=== PATIENT | female | born 1995 | race American Indian/Alaskan Native ===

== ENCOUNTER 2019-10-19 20:45 | Outpatient (CLI) | payer OTHER ==
[2019-10-19] MEDS ORDERED: LACTATED RINGERS 1,000 ML IV ONE (22:06)
[2019-10-19 22:14] LABS: Amphetamine Screen,Urine PRESUMPTIVE NEGATIVE; Bacteria,Urine 3+ /HPF (Negative); Benzodiazepines Screen,Urine PRESUMPTIVE NEGATIVE; Bilirubin,Urine NEG (Negative); Blood,Urine NEG (Negative); Cannabinoid Screen,Urine PRESUMPTIVE NEGATIVE; Cocaine Screen,Urine PRESUMPTIVE NEGATIVE; Color,Urine Yellow (Yellow); Hyaline Casts,Urine 1 /LPF; Methadone Screen,Urine PRESUMPTIVE NEGATIVE; Mucus,Urine FEW /HPF; Opiate Screen,Urine PRESUMPTIVE NEGATIVE; Protein,Urine <15 mg/dL mg/dL (Negative); Urobilinogen,Urine < 2.0 mg/dL (<2.0)
[2019-10-19] MEDS ORDERED: cefTRIAXone/NS 1 GM/50 ML 1 GM/50 ML BAG IV ONE (23:25)
--- NOTE | 2019-10-19 23:43 | Ultrasound Report ---
ULTRASOUND OBSTETRIC LIMITED ULTRASOUND BIOPHYSICAL PROFILE INDICATION / CLINICAL INFORMATION: HILTON/check placenta. Clinical Gestational Age (GA): 38.3 weeks.days COMPARISON: None available. FINDINGS: BREATHING MOVEMENT = 2 GROSS BODY MOVEMENT = 2 TONE = 2 QUALITATIVE AMNIOTIC FLUID VOLUME = 2 TOTAL BIOPHYSICAL SCORE = 8/8 HEART RATE (beats per minute): 142 AMNIOTIC FLUID INDEX (cm) = 11.2 (normal = 7-24 cm) PRESENTATION: Cephalic. ADDITIONAL FINDINGS: Placenta is anterior and to the right. No sonographic evidence for placental abr uption. IMPRESSION: 1. Biophysical Score = 8/8 2. Normal amniotic fluid index. Signer Name: Diana Galaviz MD Signed: 10/19/2019 11:39 PM Workstation Name: [id number]
[2019-10-19 23:47] VITALS: BP 106/67
--- NOTE | 2019-10-19 23:47 | Event Note ---
Date: 10/19/19 at 38 weeks, 3 days gestation. Here to rule out labor. Patient states she had contractions that started several hours ago. She denies LOF or VB. Pt. reports good movement. Patient denies dysuria, urinary frequency or urgency, flank pain, fever or chills, or malaise. Patient denies cough or SOB. Patient is well appearing. Afebrile. VSS. Abdomen is soft, nontender. Irregular mild contractions resolved with IV hydration. Cervix 1/thick/high/posterior, unchanged after greater than 1 hour. BPP 8/8. HILTON 11.2 cm. FHR 142 bpm. No evidence of placental abruption by US. UDS negative. Urinalysis shows some blood, leukocytes and bacteria. Patient was hydrated with LR. She was also given Rocephin 1 gram IV. Discussed with patient avoidance of sweet tea, sodas and coffee and encouraged patient to drink plenty of water. Discussed with pt. daily movement counting, sgins of labor, and warning signs of late . Advised patient to follow up at [facility] on Sunday10/21/2019. Patient voiced understanding. Rx for UTI also called to [facility] on [address]
== END 2019-10-19 23:57 | disposition home or self-care (01) ==
LOC: TRG 20:45
PROVIDERS: ATTEND Obstetrics & Gynecology
DX: O62.9 Abnormality of forces of labor, unspecified (principal); O47.1 False labor at or after 37 completed weeks of gestation; O99.013 Anemia complicating pregnancy, third trimester; D64.9 Anemia, unspecified; Z3A.38 38 weeks gestation of pregnancy
CPT/HCPCS: 76815; 76819; 80307; 81001; 96361; 96365; J0696; J7120

== ENCOUNTER 2020-12-05 20:12 | Emergency (ER) | payer OTHER ==
[2020-12-06] MEDS ORDERED: ACETAMINOPHEN W/CODEINE 300-30 MG TAB PO ONE (01:41)
[2020-12-06] MEDS ORDERED: IBUPROFEN 800 MG TAB PO ONE (01:41)
[2020-12-06] MEDS ORDERED: AMOXICILLIN/K CLAV 875/125MG TAB PO ONE (01:41)
[2020-12-06] MEDS ORDERED: LIDOCAINE VISCOUS 2% 15 ML ORAL LIQD PO ONE (01:41)
[2020-12-06] MEDS ORDERED: predniSONE 20 MG TAB PO ONE (01:42)
--- NOTE | 2020-12-06 02:12 | Emergency Department Report ---
ED General Adult HPI - General Chief complaint: Earache Stated complaint: RT EAR PAIN Source: patient Mode of arrival: Ambulatory Limitations: No Limitations - History of Present Illness Initial comments: Patient is a 25-year-old -[place] female with no past medical history presents to the ED with complaint of acute onset persistent severe bilateral ear pain with thick purulent discharge from the right ear, nasal and sinus congestion and severe sore throat with dysphagia for the last 2 days. Patient also complains of frontal sinus pressure and headache, diffuse body aches and pains and chills and subjective fever for the last 12 hours. Patient states that she has not been able to sleep because of worsening pain. Patient states that no one else at home has had similar symptoms. Patient denies dizziness, syncope, chest pain, shortness of breath, change in vision, traumatic injury, back pain, dysuria, urinary frequency and urgency, abdominal pain, or hearing loss. MD Complaint: Severe sore throat, severe bilateral ear pain, nasal and sinus congestion -: Sudden, days(s) (2) Location: head, face (Bilateral ears) Radiation: non-radiation Severity scale (0 -10): 8 Quality: aching, sharp Consistency: constant Improves with: none Worsens with: none Associated Symptoms: denies other symptoms, cough, fever/chills, headaches, loss of appetite, malaise. denies: confusion, chest pain, diaphoresis, nausea/vomiting, rash, seizure, shortness of breath, syncope, weakness Treatments Prior to Arrival: none - Related Data Home Medications Medication Instructions Recorded Confirmed Last Taken Ferrous Sulfate [Feosol 325 MG tab] 1 tab ONCE 11/03/19 11/03/19 11/02/19 08:00 Previous Rx's Medication Instructions Recorded Last Taken Type Ferrous Sulfate [Feosol 325 MG tab] 325 mg PO QDAY 30 Days #30 tablet 11/04/19 Unknown Rx Amoxicillin/Potassium Clav 1 each PO Q12H #20 tablet 12/06/20 Unknown Rx [Augmentin 875-125 Tablet] Ibuprofen [Motrin] 800 mg PO Q8HR PRN #30 tablet 12/06/20 Unknown Rx Lidocaine Viscous 2% 10 ml PO Q4H PRN #120 ml 12/06/20 Unknown Rx Ofloxacin 0.3% [Floxin 0.3% Otic] 2 drop OT Q12H #10 ml 12/06/20 Unknown Rx predniSONE [Deltasone] 40 mg PO QDAY #10 tab 12/06/20 Unknown Rx Allergies Allergy/AdvReac Type Severity Reaction Status Date / Time No Known Allergies Allergy Verified 10/19/19 22:16 ED Review of Systems ROS: Stated complaint: RT EAR PAIN Other details as noted in HPI Constitutional: chills, fever, malaise, weakness Eyes: denies: eye pain, eye discharge, vision change ENT: ear pain (Bilateral ear pain), throat pain (With dysphagia), congestion, other (Frontal sinus pressure and headache) Respiratory: cough. denies: shortness of breath, wheezing Cardiovascular: denies: chest pain, palpitations Endocrine: no symptoms reported Gastrointestinal: denies: abdominal pain, nausea, vomiting, diarrhea Genitourinary: denies: urgency, dysuria, discharge Musculoskeletal: arthralgia, myalgia. denies: back pain, joint swelling Skin: denies: rash, lesions Neurological: headache (Frontal sinus pressure and headache). denies: weakness, paresthesias Psychiatric: denies: anxiety, depression Hematological/Lymphatic: denies: easy bleeding, easy bruising ED Past Medical Hx - Past Medical History Previous Medical History?: No Hx Hypertension: No Hx Heart Attack/AMI: No Hx Congestive Heart Failure: No Hx Diabetes: No Hx Deep Vein Thrombosis: No Hx Liver Disease: No Hx Renal Disease: No Hx Sickle Cell Disease: No Hx Seizures: No Hx Asthma: No Hx COPD: No Hx HIV: No - Surgical History Past Surgical History?: No Hx Pacemaker: No Hx Internal Defibrillator: No - Social History Smoking Status: Former Smoker - Medications Home Medications: Home Medications Medication Instructions Recorded Confirmed Last Taken Type Ferrous Sulfate [Feosol 325 MG tab] 1 tab ONCE 11/03/19 11/03/19 11/02/19 08:00 History Ferrous Sulfate [Feosol 325 MG tab] 325 mg PO QDAY 30 Days #30 tablet 11/04/19 Unknown Rx Amoxicillin/Potassium Clav 1 each PO Q12H #20 tablet 12/06/20 Unknown Rx [Augmentin 875-125 Tablet] Ibuprofen [Motrin] 800 mg PO Q8HR PRN #30 tablet 12/06/20 Unknown Rx Lidocaine Viscous 2% 10 ml PO Q4H PRN #120 ml 12/06/20 Unknown Rx Ofloxacin 0.3% [Floxin 0.3% Otic] 2 drop OT Q12H #10 ml 12/06/20 Unknown Rx predniSONE [Deltasone] 40 mg PO QDAY #10 tab 12/06/20 Unknown Rx ED Physical Exam - General Limitations: No Limitations General appearance: alert, in no apparent distress - Head Head exam: Present: atraumatic, normocephalic, normal inspection - Eye Eye exam: Present: normal appearance, PERRL, EOMI Pupils: Present: normal accommodation - ENT ENT exam: Present: mucous membranes moist, other (Erythematous oropharynx and tonsils, no exudates or peritonsillar abscess sign; erythematous bulging tympanic membrane bilaterally with thick purulent discharge from the right ear canal) - Neck Neck exam: Present: normal inspection, full ROM, lymphadenopathy (Anterior cervical lymphadenopathy bilaterally) - Respiratory Respiratory exam: Present: normal lung sounds bilaterally. Absent: respiratory distress, wheezes, rales, chest wall tenderness, accessory muscle use, decreased breath sounds - Cardiovascular Cardiovascular Exam: Present: regular rate, normal rhythm, normal heart sounds. Absent: systolic murmur, diastolic murmur, rubs, gallop - GI/Abdominal GI/Abdominal exam: Present: soft, normal bowel sounds. Absent: tenderness, guarding, rebound, hyperactive bowel sounds, hypoactive bowel sounds, organomegaly - Extremities Exam Extremities exam: Present: normal inspection, full ROM, normal capillary refill - Back Exam Back exam: Present: normal inspection, full ROM. Absent: tenderness, CVA tenderness (R), CVA tenderness (L), muscle spasm, paraspinal tenderness, vertebral tenderness - Neurological Exam Neurological exam: Present: alert, oriented X3, CN II-XII intact, normal gait, reflexes normal - Psychiatric Psychiatric exam: Present: normal affect, normal mood - Skin Skin exam: Present: warm, dry, intact, normal color. Absent: rash ED Course Vital Signs 12/05/20 21:07 Temperature 99.2 F Pulse Rate 91 H Respiratory 18 Rate Blood Pressure 111/66 O2 Sat by Pulse 99 Oximetry ED Medical Decision Making - Medical Decision Making This is a 25-year-old -[place] female with no past medical history presents to the ED with complaint of acute onset persistent severe bilateral ear pain with thick purulent discharge from the right ear, nasal and sinus congestion and severe sore throat with dysphagia for the last 2 days. Patient also complains of frontal sinus pressure and headache, diffuse body aches and pains and chills and subjective fever for the last 12 hours. Patient states that she has not been able to sleep because of worsening pain. Patient states that no one else at home has had similar symptoms. In the ED, patient is alert and oriented x3 and is not in any distress and is hemodynamically stable but appears to be in significant pain, patient crying during the physical exam. Patient was treated in the ED with pain medications, also given initial oral antibiotics for suspected suppurative bilateral otitis media with suspected streptococcal pharyngitis. On reevaluation, patient's pain is well controlled medications. Patient is still hemodynamically stable, alert and oriented x3, answering questions appropriately and has not deteriorated during the ED course of treatment. Patient was therefore discharged home on pain medications and antibiotics and advised to follow-up with her primary care physician in 5 to 7 days for reevaluation. Patient was also given a referral to the ENT physician Dr. Ceballos for follow-up in 7 to 10 days. Patient was advised to contact Dr. Ceballos' office the first thing on Sunday, December 07, 2020 to schedule a follow-up appointment. Patient was otherwise advised return to the ED immediately if symptoms get worse. - Differential Diagnosis otitis media; pharyngitis; tonsillitis; sinusitis; URI Critical care attestation.: If time is entered above; I have spent that time in minutes in the direct care of this critically ill patient, excluding procedure time. ED Disposition Clinical Impression: Acute bacterial tonsillitis, Acute bacterial pharyngitis, Acute upper respiratory infection, Acute otitis media with effusion of both ears Acute frontal sinusitis, unspecified Qualifiers: Recurrence: non-recurrent Qualified Code(s): J01.10 - Acute frontal sinusitis, unspecified Disposition: DC-01 TO HOME OR SELFCARE Is pt being admited?: No Does the pt Need Aspirin: No Condition: Stable Instructions: Ear Drops, Adult, [id number], Otitis Media, Adult, [id number], Sinusitis, Adult, [id number], Upper Respiratory Infection, Adult, [id number], Tonsillitis, [id number]-[id number], Pharyngitis, [id number] Additional Instructions: Your symptoms are likely due to acute otitis media, acute tonsillitis and pharyngitis and sinusitis. Therefore take medications as advised with food, drink plenty of fluids and follow-up with your primary care physician in 7 to 10 days for reevaluation. Consider following up with the ENT physician Dr. Ceballos for further evaluation. Contact Dr. Ceballos' office first thing in the morning on Monday, December 07, 2020 to schedule a follow-up appointment. Return to the ED immediately if symptoms get worse. Prescriptions: Amoxicillin/Potassium Clav [Augmentin 875-125 Tablet] 1 each PO Q12H #20 tablet predniSONE [Deltasone] 40 mg PO QDAY #10 tab Ofloxacin 0.3% [Floxin 0.3% Otic] 2 drop OT Q12H #10 ml Lidocaine Viscous 2% 10 ml PO Q4H PRN #120 ml PRN Reason: Sore Throat Ibuprofen [Motrin] 800 mg PO Q8HR PRN #30 tablet PRN Reason: Pain , Severe (7-10) Referrals: LESLEE CEBALLOS MD [Staff Physician] - 3-5 Days [facility] [Provider Group] - 7-10 days Time of Disposition: 02:23 Print Language: BENGALI
[2020-12-06 03:45] VITALS: BP 123/80
== END 2020-12-06 03:00 | disposition home or self-care (01) ==
LOC: ED 20:12
DX: J03.80 Acute tonsillitis due to other specified organisms (principal); B96.89 Other specified bacterial agents as the cause of diseases classified elsewhere; J06.9 Acute upper respiratory infection, unspecified; H65.193 Other acute nonsuppurative otitis media, bilateral; J01.10 Acute frontal sinusitis, unspecified; Z87.891 Personal history of nicotine dependence; Z79.899 Other long term (current) drug therapy
CPT/HCPCS: 99282; J7512

== ENCOUNTER 2021-04-29 23:12 | Emergency (ER) | payer OTHER ==
[2021-04-29 23:22] VITALS: BP 110/77
[2021-04-30] MEDS ORDERED: CLINDAMYCIN 150 MG/ML 2 ML VIAL IM ONE (02:10)
--- NOTE | 2021-04-30 02:30 | Emergency Department Report ---
- General Chief complaint: Skin/Abscess/Foreign Body Stated complaint: BREAST ABSCESS Time Seen by Provider: 04/30/21 01:55 Source: patient Mode of arrival: Ambulatory Limitations: No Limitations - History of Present Illness Initial comments: 25-year-old Pakistani female [facility] emerge department complaining of a 2 to 3-week history of redness swelling to her right breast in the form of cellulitis but no discharge, fever, chills, sweats, hemoptysis,, hematemesis. Area is tender to the touch. She reports no nausea, no vomiting Severity: mild, moderate Quality: dull Consistency: constant Improves with: none Worsens with: palpation, movement Context: none Associated symptoms: chills Treatments Prior to Arrival: none - Related Data Home Medications Medication Instructions Recorded Confirmed Last Taken Ferrous Sulfate [Feosol 325 MG tab] 1 tab ONCE 11/03/19 11/03/19 11/02/19 08:00 Previous Rx's Medication Instructions Recorded Last Taken Type Ferrous Sulfate [Feosol 325 MG tab] 325 mg PO QDAY 30 Days #30 tablet 11/04/19 Unknown Rx Amoxicillin/Potassium Clav 1 each PO Q12H #20 tablet 12/06/20 Unknown Rx [Augmentin 875-125 Tablet] Ibuprofen [Motrin] 800 mg PO Q8HR PRN #30 tablet 12/06/20 Unknown Rx Lidocaine Viscous 2% 10 ml PO Q4H PRN #120 ml 12/06/20 Unknown Rx Ofloxacin 0.3% [Floxin 0.3% Otic] 2 drop OT Q12H #10 ml 12/06/20 Unknown Rx predniSONE [Deltasone] 40 mg PO QDAY #10 tab 12/06/20 Unknown Rx Clindamycin [Clindamycin CAP] 150 mg PO Q6HR #40 capsule 04/30/21 Unknown Rx Ketorolac [Toradol] 10 mg PO Q6H PRN #14 tablet 04/30/21 Unknown Rx Allergies Allergy/AdvReac Type Severity Reaction Status Date / Time No Known Allergies Allergy Verified 10/19/19 22:16 Abscess Boil HPI - HPI Chief Complaint: Skin/Abscess/Foreign Body Stated Complaint: BREAST ABSCESS Time Seen by Provider: 04/30/21 01:55 Home Medications: Home Medications Medication Instructions Recorded Confirmed Last Taken Ferrous Sulfate [Feosol 325 MG tab] 1 tab ONCE 11/03/19 11/03/1911/01/20 08:00 Previous Rx's Medication Instructions Recorded Last Taken Type Ferrous Sulfate [Feosol 325 MG tab] 325 mg PO QDAY 30 Days #30 tablet 11/04/19 Unknown Rx Amoxicillin/Potassium Clav 1 each PO Q12H #20 tablet 12/06/20 Unknown Rx [Augmentin 875-125 Tablet] Ibuprofen [Motrin] 800 mg PO Q8HR PRN #30 tablet 12/06/20 Unknown Rx Lidocaine Viscous 2% 10 ml PO Q4H PRN #120 ml 12/06/20 Unknown Rx Ofloxacin 0.3% [Floxin 0.3% Otic] 2 drop OT Q12H #10 ml 12/06/20 Unknown Rx predniSONE [Deltasone] 40 mg PO QDAY #10 tab 12/06/20 Unknown Rx Clindamycin [Clindamycin CAP] 150 mg PO Q6HR #40 capsule 04/30/21 Unknown Rx Ketorolac [Toradol] 10 mg PO Q6H PRN #14 tablet 04/30/21 Unknown Rx Allergies/Adverse Reactions: Allergies Allergy/AdvReac Type Severity Reaction Status Date / Time No Known Allergies Allergy Verified 10/19/19 22:16 ED Review of Systems ROS: Stated complaint: BREAST ABSCESS Other details as noted in HPI Comment: All other systems reviewed and negative ED Past Medical Hx - Past Medical History Hx Hypertension: No Hx Heart Attack/AMI: No Hx Congestive Heart Failure: No Hx Diabetes: No Hx Deep Vein Thrombosis: No Hx Liver Disease: No Hx Renal Disease: No Hx Sickle Cell Disease: No Hx Seizures: No Hx Asthma: No Hx COPD: No Hx HIV: No - Surgical History Hx Pacemaker: No Hx Internal Defibrillator: No - Social History Smoking Status: Former Smoker - Medications Home Medications: Home Medications Medication Instructions Recorded Confirmed Last Taken Type Ferrous Sulfate [Feosol 325 MG tab] 1 tab ONCE 11/03/19 11/03/19 11/02/19 08:00 History Ferrous Sulfate [Feosol 325 MG tab] 325 mg PO QDAY 30 Days #30 tablet 11/04/19 Unknown Rx Amoxicillin/Potassium Clav 1 each PO Q12H #20 tablet 12/06/20 Unknown Rx [Augmentin 875-125 Tablet] Ibuprofen [Motrin] 800 mg PO Q8HR PRN #30 tablet 12/06/20 Unknown Rx Lidocaine Viscous 2% 10 ml PO Q4H PRN #120 ml 12/06/20 Unknown Rx Ofloxacin 0.3% [Floxin 0.3% Otic] 2 drop OT Q12H #10 ml 12/06/20 Unknown Rx predniSONE [Deltasone] 40 mg PO QDAY #10 tab 12/06/20 Unknown Rx Clindamycin [Clindamycin CAP] 150 mg PO Q6HR #40 capsule 04/30/21 Unknown Rx Ketorolac [Toradol] 10 mg PO Q6H PRN #14 tablet 04/30/21 Unknown Rx ED Physical Exam - General Limitations: No Limitations General appearance: alert, in no apparent distress - Head Head exam: Present: atraumatic, normocephalic - Eye Eye exam: Present: normal appearance, PERRL, EOMI Pupils: Present: normal accommodation - ENT ENT exam: Present: normal exam, mucous membranes moist, TM's normal bilaterally - Neck Neck exam: Present: normal inspection, full ROM. Absent: tenderness, lymphadenopathy - Respiratory Respiratory exam: Present: normal lung sounds bilaterally. Absent: respiratory distress, wheezes, rales, chest wall tenderness, accessory muscle use - Cardiovascular Cardiovascular Exam: Present: regular rate, normal rhythm. Absent: systolic murmur, diastolic murmur, rubs, gallop - GI/Abdominal GI/Abdominal exam: Present: soft, normal bowel sounds - Extremities Exam Extremities exam: Present: normal inspection, normal capillary refill - Back Exam Back exam: Present: normal inspection. Absent: CVA tenderness (R), CVA tenderness (L) - Neurological Exam Neurological exam: Present: alert, oriented X3, CN II-XII intact, normal gait - Psychiatric Psychiatric exam: Present: normal affect, normal mood. Absent: flat affect, manic - Skin Skin exam: Present: warm, dry, erythema. Absent: normal color, rash, diaphoretic, pallor, abrasion ED Course Vital Signs 04/29/21 23:20 Temperature 98.9 F Pulse Rate 99 H Respiratory 20 Rate Blood Pressure 110/77 O2 Sat by Pulse 100 Oximetry Critical care attestation.: If time is entered above; I have spent that time in minutes in the direct care of this critically ill patient, excluding procedure time. ED Disposition Clinical Impression: Cellulitis of right breast Disposition: HOME / SELF CARE / HOMELESS Is pt being admited?: No Does the pt Need Aspirin: No Condition: Stable Instructions: Cellulitis, Adult, Mastitis Prescriptions: Clindamycin [Clindamycin CAP] 150 mg PO Q6HR #40 capsule Ketorolac [Toradol] 10 mg PO Q6H PRN #14 tablet PRN Reason: Pain Referrals: [facility] [Provider Group] - 3-5 Days
== END 2021-04-30 03:39 | disposition home or self-care (01) ==
LOC: ED 23:12
DX: N61.0 Mastitis without abscess (principal); Z87.891 Personal history of nicotine dependence
CPT/HCPCS: 96372; 99282

== ENCOUNTER 2021-05-01 19:31 | Emergency (ER) | payer OTHER ==
[2021-05-01] MEDS ORDERED: HYDROmorphone 1 MG/1 ML INJ IV ONE (20:27)
[2021-05-01] MEDS ORDERED: LIDOCAINE (1%) 10 MG/1 ML VIAL 20 ML MDV INFILTRATI ONE (20:27)
[2021-05-01] MEDS ORDERED: SULFAMETHOXAZOLE/TRIMETHOPRIM 800/160MG DS TAB PO ONE (20:27)
[2021-05-01] MEDS ORDERED: ONDANSETRON 4 MG/2 ML INJ IV ONE (20:27)
[2021-05-01] MEDS ORDERED: IBUPROFEN 600 MG TAB PO ONE (20:36)
[2021-05-01] MEDS ORDERED: SODIUM CHLORIDE 0.9% 1000 ML 1,000 ML IV ONE (20:37)
--- NOTE | 2021-05-01 20:42 | Emergency Department Report ---
ED General Adult HPI - General Chief complaint: Urogenital-Female Stated complaint: RT BREAST ABSCESS Source: patient Mode of arrival: Ambulatory Limitations: No Limitations - History of Present Illness Initial comments: Patient is a 25-year-old -[place] female with no past medical history who presents to the ED with complaint of acute onset persistent painful swelling erythematous maculopapular rash on right breast for the last 2 weeks, worse in the last 2 days. Patient was initially evaluated in this ED and given a prescription of Keflex which she has been taking for the last 2 days. Patient states that the pain and the swelling have worsened in the last 24 hours such that she has not been able to sleep or move because of worsening pain. Patient denies dizziness, syncope, chest pain, shortness of breath, abdominal pain, nausea and vomiting or diarrhea, headache, change in vision or numbness and tingling or weakness of upper extremities bilaterally. MD Complaint: Swollen, severely painful erythematous maculopapular rash on right breast -: Sudden, week(s) (2) Location: chest (Right breast), right Radiation: non-radiation Severity scale (0 -10): 8 Quality: aching, sharp Consistency: constant Improves with: none Worsens with: movement, other (Palpation) Associated Symptoms: denies other symptoms, fever/chills, loss of appetite, rash (Swollen, severely painful mild erythematous maculopapular rash on right breast). denies: confusion, chest pain, cough, diaphoresis, headaches, malaise, nausea/vomiting, shortness of breath, syncope Treatments Prior to Arrival: none - Related Data Home Medications Medication Instructions Recorded Confirmed Last Taken Ferrous Sulfate [Feosol 325 MG tab] 1 tab ONCE 11/03/19 11/03/19 11/02/19 08:00 Previous Rx's Medication Instructions Recorded Last Taken Type Ferrous Sulfate [Feosol 325 MG tab] 325 mg PO QDAY 30 Days #30 tablet 11/04/19 Unknown Rx Amoxicillin/Potassium Clav 1 each PO Q12H #20 tablet 12/06/20 Unknown Rx [Augmentin 875-125 Tablet] Ibuprofen [Motrin] 800 mg PO Q8HR PRN #30 tablet 12/06/20 Unknown Rx Lidocaine Viscous 2% 10 ml PO Q4H PRN #120 ml 12/06/20 Unknown Rx Ofloxacin 0.3% [Floxin 0.3% Otic] 2 drop OT Q12H #10 ml 12/06/20 Unknown Rx predniSONE [Deltasone] 40 mg PO QDAY #10 tab 12/06/20 Unknown Rx Clindamycin [Clindamycin CAP] 150 mg PO Q6HR #40 capsule 04/30/21 Unknown Rx Ketorolac [Toradol] 10 mg PO Q6H PRN #14 tablet 04/30/21 Unknown Rx Acetaminophen/Codeine [Tylenol 1 tab PO Q6H PRN #15 tab 05/01/21 Unknown Rx /Codeine # 3 tab] Clindamycin [Clindamycin CAP] 300 mg PO Q8HR #60 capsule 05/01/21 Unknown Rx Sulfamethoxazole/Trimethoprim 1 each PO Q12H #20 tablet 05/01/21 Unknown Rx [Bactrim DS TAB] Allergies Allergy/AdvReac Type Severity Reaction Status Date / Time No Known Allergies Allergy Verified 10/19/19 22:16 ED Review of Systems ROS: Stated complaint: RT BREAST ABSCESS Other details as noted in HPI Constitutional: chills, fever, malaise Eyes: denies: eye pain, eye discharge, vision change ENT: denies: ear pain, throat pain Respiratory: other (Painful, swelling, erythematous maculopapular rash on right breast). denies: cough, shortness of breath, wheezing Cardiovascular: chest pain (Right breast pain due to erythematous maculopapular rash). denies: palpitations Endocrine: no symptoms reported Gastrointestinal: denies: abdominal pain, nausea, diarrhea Genitourinary: denies: urgency, dysuria, discharge Musculoskeletal: denies: back pain, joint swelling, arthralgia Skin: rash (Swollen, severely painful, erythematous maculopapular rash on right breast), change in color. denies: lesions Neurological: denies: headache, weakness, paresthesias Psychiatric: denies: anxiety, depression Hematological/Lymphatic: denies: easy bleeding, easy bruising ED Past Medical Hx - Past Medical History Hx Hypertension: No Hx Heart Attack/AMI: No Hx Congestive Heart Failure: No Hx Diabetes: No Hx Deep Vein Thrombosis: No Hx Liver Disease: No Hx Renal Disease: No Hx Sickle Cell Disease: No Hx Seizures: No Hx Asthma: No Hx COPD: No Hx HIV: No - Surgical History Hx Pacemaker: No Hx Internal Defibrillator: No - Social History Smoking Status: Former Smoker - Medications Home Medications: Home Medications Medication Instructions Recorded Confirmed Last Taken Type Ferrous Sulfate [Feosol 325 MG tab] 1 tab ONCE 11/03/19 11/03/19 11/02/19 08:00 History Ferrous Sulfate [Feosol 325 MG tab] 325 mg PO QDAY 30 Days #30 tablet 11/04/19 Unknown Rx Amoxicillin/Potassium Clav 1 each PO Q12H #20 tablet 12/06/20 Unknown Rx [Augmentin 875-125 Tablet] Ibuprofen [Motrin] 800 mg PO Q8HR PRN #30 tablet 12/06/20 Unknown Rx Lidocaine Viscous 2% 10 ml PO Q4H PRN #120 ml 12/06/20 Unknown Rx Ofloxacin 0.3% [Floxin 0.3% Otic] 2 drop OT Q12H #10 ml 12/06/20 Unknown Rx predniSONE [Deltasone] 40 mg PO QDAY #10 tab 12/06/20 Unknown Rx Clindamycin [Clindamycin CAP] 150 mg PO Q6HR #40 capsule 04/30/21 Unknown Rx Ketorolac [Toradol] 10 mg PO Q6H PRN #14 tablet 04/30/21 Unknown Rx Acetaminophen/Codeine [Tylenol 1 tab PO Q6H PRN #15 tab 05/01/21 Unknown Rx /Codeine # 3 tab] Clindamycin [Clindamycin CAP] 300 mg PO Q8HR #60 capsule 05/01/21 Unknown Rx Sulfamethoxazole/Trimethoprim 1 each PO Q12H #20 tablet 05/01/21 Unknown Rx [Bactrim DS TAB] ED Physical Exam - General Limitations: No Limitations General appearance: alert, in no apparent distress - Head Head exam: Present: atraumatic, normocephalic, normal inspection - Eye Eye exam: Present: normal appearance, PERRL, EOMI Pupils: Present: normal accommodation - ENT ENT exam: Present: normal exam, normal orophraynx, mucous membranes moist, TM's normal bilaterally, normal external ear exam - Neck Neck exam: Present: normal inspection, full ROM - Respiratory Respiratory exam: Present: normal lung sounds bilaterally, chest wall tenderness (Palpable severely tender erythematous maculopapular swelling fluctuant rash on right breast), other (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 Santos during the breast exam). Absent: respiratory distress, wheezes, rales - Cardiovascular Cardiovascular Exam: Present: normal rhythm, tachycardia, normal heart sounds. Absent: systolic murmur, diastolic murmur, rubs, gallop - GI/Abdominal GI/Abdominal exam: Present: soft, normal bowel sounds. Absent: distended, tenderness, guarding, rebound, hyperactive bowel sounds, hypoactive bowel sounds, organomegaly - Extremities Exam Extremities exam: Present: normal inspection, full ROM, normal capillary refill - Back Exam Back exam: Present: normal inspection, full ROM. Absent: tenderness, CVA tenderness (R), CVA tenderness (L), muscle spasm, paraspinal tenderness, vertebral tenderness - Neurological Exam Neurological exam: Present: alert, oriented X3, CN II-XII intact, normal gait, reflexes normal - Psychiatric Psychiatric exam: Present: normal affect, normal mood - Skin Skin exam: Present: warm, dry, intact, rash (Swollen, severely tender, erythematous maculopapular fluctuant rash on right breast) ED Course Vital Signs 05/01/21 05/01/21 20:07 22:37 Temperature 100.9 F H 98.7 F Pulse Rate 111 H 83 Respiratory 18 16 Rate Blood Pressure 117/75 121/79 [Left] O2 Sat by Pulse 100 100 Oximetry - I & D Right Breast Type of Procedure: Simple Site: right breast Blade Size: 11 I & D Procedure: betadine prep, sterile drapes applied, sterile dressing applied, gauze wick placed Progress: The area was cleaned with normal saline and Betadine solution. A total of 10 cc of lidocaine 1% solution was used to infiltrate the area for local anesthesia. When anesthesia was fully achieved, a small incision was made at 12 o'clock position above the areola of the right breast and copious thick purulent greenish discharge drained from the wound. The wound was cleaned extensively and debrided with normal saline and if loculations were broken with hemostat. Wound was then packed with quarter inch iodoform gauze and dressed appropriately with 4 x 4 gauze and Tegaderm. Patient tolerated procedure well. On reevaluation, patient's pain is well controlled medication. Patient will discharge home on pain medications and oral antibiotics and advised to return to the ED in 2 days for wound recheck and packing removal. Patient was was advised to follow-up with her primary care physician or PRODUCTION DIRECTOR physician in 7 to 10 days for reevaluation. ED Medical Decision Making - Lab Data Result diagrams: 05/01/21 20:34 05/01/21 20:34 - Medical Decision Making This is a 25-year-old -[place] female with no past medical history who presents to the ED with complaint of acute onset persistent painful swelling erythematous maculopapular rash on right breast for the last 2 weeks, worse in the last 2 days. Patient was initially evaluated in this ED and given a prescription of Keflex which she has been taking for the last 2 days. Patient states that the pain and the swelling have worsened in the last 24 hours such that she has not been able to sleep or move because of worsening pain. In the ED, patient is alert and oriented x3 and is not in any distress but appears to be in significant pain, febrile and tachycardic in triage. Patient was treated for fever and also treated for pain in the ED. Labs were drawn and patient also started on IV antibiotics, clindamycin 900 mg IV x1 and Bactrim DS p.o. x1. Lab test results were reviewed and showed acute leukocytosis of 15,800 and the rest of the lab test results are nonactionable.The area was cleaned with normal saline and Betadine solution. A total of 10 cc of lidocaine 1% solution was used to infiltrate the area for local anesthesia. When anesthesia was fully achieved, a small incision was made at 12 o'clock position above the areola of the right breast and copious thick purulent greenish discharge drained from the wound. The wound was cleaned extensively and debrided with normal saline and if loculations were broken with hemostat. Wound was then packed with quarter inch iodoform gauze and dressed appropriately with 4 x 4 gauze and Tegaderm. Patient tolerated procedure well. On reevaluation, patient's pain is well controlled medication. Patient will discharge home on pain medications and oral antibiotics and advised to return to the ED in 2 days for wound recheck and packing removal. Patient was was advised to follow-up with her primary care physician or PRODUCTION DIRECTOR physician in 7 to 10 days for reevaluation. - Differential Diagnosis Cellulitis; sepsis due to cellulitis; cutaneous abscess; breast abscess Critical care attestation.: If time is entered above; I have spent that time in minutes in the direct care of this critically ill patient, excluding procedure time. ED Disposition Clinical Impression: Nonpuerperal abscess of right breast, Cellulitis of right breast, Sepsis due to cellulitis Disposition: HOME / SELF CARE / HOMELESS Is pt being admited?: No Does the pt Need Aspirin: No Condition: Stable Instructions: Cellulitis, Adult, [id number], Skin Abscess, [id number], Ma stitis, [id number] Additional Instructions: Take medication with food, drink plenty of fluids, follow-up with your primary care physician in 7 to 10 days for reevaluation. Otherwise return to the ED in 2 days for wound recheck and packing removal. Prescriptions: Sulfamethoxazole/Trimethoprim [Bactrim DS TAB] 1 each PO Q12H #20 tablet Clindamycin [Clindamycin CAP] 300 mg PO Q8HR #60 capsule Acetaminophen/Codeine [Tylenol /Codeine # 3 tab] 1 tab PO Q6H PRN #15 tab PRN Reason: Severe Pain Referrals: [facility] [Provider Group] - 7-10 days Forms: Work/School Release Form(ED) Time of Disposition: 22:54 Print Language: MACANESE
[2021-05-01 20:47] LABS: Basophils # (Auto) 0.1 K/mm3 (0.0-0.1); Basophils % (Auto) 0.6 % (0.0-1.8); Eosinophils # (Auto) 0.4 K/mm3 (0.0-0.4); Eosinophils % (Auto) 2.8 % (0.0-4.3); Hematocrit 39.2 % (30.3-42.9); Hemoglobin 12.3 gm/dl (10.1-14.3); Lymphocytes # (Auto) 2.6 K/mm3 (1.2-5.4); Lymphocytes % (Auto) 16.8 % (13.4-35.0); Mean Corpuscular HGB Conc 31 % (30-34); Mean Corpuscular Volume 92 fl (79-97); Monocytes # (Auto) 1.1 K/mm3 (0.0-0.8); Monocytes % (Auto) 7.2 % (0.0-7.3); Platelet Count 306 K/mm3 (140-440); Red Blood Count 4.25 M/mm3 (3.65-5.03); Red Cell Distribution Width 12.6 % (13.2-15.2)
[2021-05-01 21:16] LABS: Alanine Aminotransferase 11 units/L (7-56); Albumin 3.6 g/dL (3.9-5); Blood Urea Nitrogen 8 mg/dL (7-17); Calcium 8.8 mg/dL (8.4-10.2); Hemolysis Index 16
[2021-05-01 21:24] LABS: BUN/Creatinine Ratio 11
[2021-05-01 22:38] VITALS: BP 121/79
[2021-05-01] MEDS ORDERED: oxyCODONE /ACETAMINOPHEN 5-325MG TAB PO ONE (22:53)
[2021-05-01] MEDS ORDERED: ONDANSETRON 4 MG ODT TAB PO ONE (22:53)
== END 2021-05-01 23:20 | disposition home or self-care (01) ==
LOC: ED 19:31
DX: A41.9 Sepsis, unspecified organism (principal); N61.1 Abscess of the breast and nipple; Z79.899 Other long term (current) drug therapy
CPT/HCPCS: 10060; 36415; 80053; 82140; 85025; 87040; 96365; 96366; 96375; 99283; J1170; J2405; J7030; Q0162

== ENCOUNTER 2021-05-03 04:59 | Emergency (ER) | payer OTHER ==
[2021-05-03 05:07] VITALS: BP 118/70
[2021-05-03] MEDS ORDERED: HYDROcodone/ACETAMINOPHEN 10-325MG TAB PO ONE (08:12)
--- NOTE | 2021-05-03 08:18 | Emergency Department Report ---
Suture/Staple Removal - [facility] Chief Complaint: Wound/Laceration Stated Complaint: DRESSING CHANGE Time Seen by Provider: 05/03/21 07:51 When Sutures or [place] Placed: 2 days Wound Location: Right breast ED Review of Systems ROS: Stated complaint: DRESSING CHANGE Other details as noted in HPI Comment: All other systems reviewed and negative Constitutional: denies: chills, fever Eyes: denies: eye pain, eye discharge, vision change ENT: denies: ear pain, throat pain Respiratory: denies: cough, shortness of breath, wheezing Cardiovascular: denies: chest pain, palpitations Endocrine: no symptoms reported Gastrointestinal: denies: abdominal pain, nausea, diarrhea Genitourinary: denies: urgency, dysuria, discharge Musculoskeletal: denies: back pain, joint swelling, arthralgia Skin: denies: rash, lesions Neurological: denies: headache, weakness, paresthesias Psychiatric: denies: anxiety, depression Hematological/Lymphatic: denies: easy bleeding, easy bruising ED Past Medical Hx - Past Medical History Hx Hypertension: No Hx Heart Attack/AMI: No Hx Congestive Heart Failure: No Hx Diabetes: No Hx Deep Vein Thrombosis: No Hx Liver Disease: No Hx Renal Disease: No Hx Sickle Cell Disease: No Hx Seizures: No Hx Asthma: No Hx COPD: No Hx HIV: No - Surgical History Past Surgical History?: Yes Hx Pacemaker: No Hx Internal Defibrillator: No Additional Surgical History: Abcess - Social History Smoking Status: Current Every Day Smoker Substance Use Type: None - Medications Home Medications: Home Medications Medication Instructions Recorded Confirmed Last Taken Type Ferrous Sulfate [Feosol 325 MG tab] 1 tab ONCE 11/03/19 11/03/19 11/02/19 08:00 History Ferrous Sulfate [Feosol 325 MG tab] 325 mg PO QDAY 30 Days #30 tablet 11/04/19 Unknown Rx Amoxicillin/Potassium Clav 1 each PO Q12H #20 tablet 12/06/20 Unknown Rx [Augmentin 875-125 Tablet] Ibuprofen [Motrin] 800 mg PO Q8HR PRN #30 tablet 12/06/20 Unknown Rx Lidocaine Viscous 2% 10 ml PO Q4H PRN #120 ml 12/06/20 Unknown Rx Ofloxacin 0.3% [Floxin 0.3% Otic] 2 drop OT Q12H #10 ml 12/06/20 Unknown Rx predniSONE [Deltasone] 40 mg PO QDAY #10 tab 12/06/20 Unknown Rx Clindamycin [Clindamycin CAP] 150 mg PO Q6HR #40 capsule 04/30/21 Unknown Rx Ketorolac [Toradol] 10 mg PO Q6H PRN #14 tablet 04/30/21 Unknown Rx Acetaminophen/Codeine [Tylenol 1 tab PO Q6H PRN #15 tab 05/01/21 Unknown Rx /Codeine # 3 tab] Clindamycin [Clindamycin CAP] 300 mg PO Q8HR #60 capsule 05/01/21 Unknown Rx Sulfamethoxazole/Trimethoprim 1 each PO Q12H #20 tablet 05/01/21 Unknown Rx [Bactrim DS TAB] Suture Removal Exam - Exam General: Vital signs noted. No distress. Alert and acting appropriately. Wound: Yes Tenderness, No Pathologic Erythema, No Drainage, No Pus, No Wound Deh iscence Other Systems: All other systems reviewed and are unremarkable. ED Course Vital Signs 05/03/21 05:05 Temperature 98.7 F Pulse Rate 83 Respiratory 19 Rate Blood Pressure 118/70 O2 Sat by Pulse 99 Oximetry - Reevaluation(s) Reevaluation #1: 05/03/21 08:16 Patient is speaking in full sentences with no signs of distress noted. ED Recheck MDM - Medical Decision Making This is a 25-year-old female that presents with abscess packing removal. She is stable and was examined by me. One fourth iodoform packing has been removed. Patient developed some pain after removal and patient received [place] for pain which stated family member will drive patient home after discharge due to possible drowsiness. No signs of wound dehiscence, drainage, or cellulitis. Patient was referred to Follow-up with a primary care doctor in 3-5 days or if symptoms worsen and continue return to emergency room as soon as possible. At time of discharge, the patient does not seem toxic or ill in appearance. No acute signs of distress noted. Patient agrees to discharge treatment plan of care. No further questions noted by the patient. Critical care attestation.: If time is entered above; I have spent that time in minutes in the direct care of this critically ill patient, excluding procedure time. ED Disposition Clinical Impression: Encounter for abscess packing removal Disposition: HOME / SELF CARE / HOMELESS Is pt being admited?: No Does the pt Need Aspirin: No Condition: Stable Instructions: Wound Care, Adult Additional Instructions: Follow-up with a primary care doctor in 3-5 days or if symptoms worsen and continue return to emergency room as soon as possible. Continue taking antibiotics as prescribed to you during your previous visit. Referrals: PRIMARY CARE, [Referring] - 3-5 Days ITALO FRANCO MD [Staff Physician] - 3-5 Days Time of Disposition: 08:17
== END 2021-05-03 08:45 | disposition home or self-care (01) ==
LOC: ED 04:59
DX: Z48.01 Encounter for change or removal of surgical wound dressing (principal)
CPT/HCPCS: 99282